=== PATIENT | male | born 1990 | race Two or more races ===

== ENCOUNTER 2019-02-17 15:12 | Emergency (ER) | payer OTHER ==
[2019-02-17 15:16] VITALS: BP 137/84; PULSE 66; TEMP 98.3; BMI 30.4
[2019-02-17] MEDS ORDERED: METHOCARBAMOL 500 MG TABLET PO ONE (16:05)
[2019-02-17] MEDS ORDERED: KETOROLAC TROMETHAMINE 60 MG/2 ML VIAL IM ONE (16:05)
[2019-02-17] MEDS ORDERED: METHOCARBAMOL 500 MG TABLET ONE (16:07)
[2019-02-17] MEDS ORDERED: NAPROXEN 500 MG TABLET (FP) ONE (16:07)
[2019-02-17] MEDS ORDERED: KETOROLAC TROMETHAMINE 60 MG/2 ML VIAL ONE (16:09)
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
== END 2019-02-17 18:01 | disposition home or self-care (01) ==
LOC: JERFT 15:12
PROC: 3E0233Z Introduction of Anti-inflammatory into Muscle, Percutaneous Approach (ICD-10-PCS; principal; 2019-02-17)
DX: G24.3 Spasmodic torticollis (principal)
CPT/HCPCS: 72125-TC; 96372; 99281-25

== ENCOUNTER 2021-12-10 23:24 | Emergency (ER) | payer OTHER ==
[2021-12-10 23:40] VITALS: BP 128/83; PULSE 77; TEMP 99.1; BMI 30.4
[2021-12-10] MEDS ORDERED: predniSONE 20 MG TABLET (UD) PO ONE (23:45)
[2021-12-10] MEDS ORDERED: KETOROLAC TROMETHAMINE 60 MG/2 ML VIAL IM ONE (23:45)
[2021-12-10] MEDS ORDERED: KETOROLAC TROMETHAMINE 60 MG/2 ML VIAL ONE (23:48)
[2021-12-10] MEDS ORDERED: predniSONE 20 MG TABLET (UD) ONE (23:49)
== END 2021-12-10 23:54 | disposition home or self-care (01) ==
LOC: FER 23:24
PROC: 3E0233Z Introduction of Anti-inflammatory into Muscle, Percutaneous Approach (ICD-10-PCS; principal; 2021-12-10)
DX: M54.12 Radiculopathy, cervical region (principal)
CPT/HCPCS: 99284-25